=== PATIENT | male | born 1960 ===

== ENCOUNTER 2021-05-12 10:48 | Inpatient (IN) ==
[2021-05-12 15:04] LABS: Basophils % 0.3 % (0.0-0.8); Eosinophils # 0.1 10*3/uL (0.0-0.87); Eosinophils % 0.6 % (0.00-10.9); Hematocrit 29.4 VOL% (42.0-52.0); Hemoglobin 9.4 GM/DL (14.0-18.0); Immature Granulocytes % 0.8 %; Lymphocytes # 0.8 10*3/uL (1.4-4.0); Lymphocytes % 6.7 % (21.2-54.2); Mean Platelet Volume 11.5 FL (9.6-12.0); Monocytes % 10.5 % (1.7-12.7); Neutrophils % 81.1 % (38.7-73.9); Platelet Count 466 T/CUMM (130-400); Red Blood Count 3.34 MC/CUMM (3.8-5.5); Red Cell Distribution Width 15.9 % (9.3-17.3); White Blood Count 12.4 T/CUMM (4-12)
[2021-05-12 15:29] LABS: Albumin 2.1 G/DL (3.4-5.0); Bilirubin,Total 1.1 MG/DL (0.20-1.00); Calcium 9.3 MG/DL (8.5-10.1); Osmolality,Calculated 264.8 MOS/KG (273-304); Total Protein 8.2 G/DL (6.4-8.2)
[2021-05-12 15:32] LABS: Potassium 6.7 MMOL/L (3.5-5.1)
[2021-05-12] MEDS ORDERED: SODIUM CHLORIDE 0.9% 1,000 ML IV STA (15:36)
[2021-05-12] MEDS ORDERED: CLINDAMYCIN INJ 600 MG/50 ML PREMIX IV STA (15:50)
[2021-05-12] MEDS ORDERED: ONDANSETRON 4 MG/2 ML VIAL IV PRN (17:14)
[2021-05-12] MEDS ORDERED: DOCUSATE SODIUM 100 MG CAPSULE PO PRN (17:14)
[2021-05-12] MEDS ORDERED: ACETAMINOPHEN 325 MG TABLET PO PRN (17:14)
[2021-05-12] MEDS ORDERED: GLUCAGON 1 MG VIAL IM PRN ×2 (17:14)
[2021-05-12] MEDS ORDERED: DEXTROSE 50% 25 GM/50 ML VIAL IV PRN (17:14)
[2021-05-12] MEDS ORDERED: hydrALAZINE 20 MG/1 ML VIAL IV PRN (17:14)
[2021-05-12] MEDS ORDERED: METOPROLOL TARTRATE 5 MG/5 ML VIAL IV STA (17:24)
[2021-05-12] MEDS ORDERED: DEXTROSE 10% 250 ML BAG IV PRN (17:25)
[2021-05-12] MEDS ORDERED: SODIUM POLYSTYRENE SULFATE 15 GM/60 ML BOTTLE PO STA (17:42)
[2021-05-12] MEDS: PIPERACILLIN/TAZOBACTAM 3,375 MG in SODIUM CHLORIDE 0.9% 100 ML IV SCH (18:59)
[2021-05-12] MEDS: SODIUM CHLORIDE 0.9% 1,000 ML IV SCH (20:25)
[2021-05-12] MEDS: INSULIN LISPRO 100 UNIT/ML SUBCUT SCH (21:23)
[2021-05-12] MEDS: HYDROmorphone 1 MG/1 ML SYRINGE IV PRN (21:24)
[2021-05-12] MEDS: LINEZOLID INJ 600 MG/300 ML PREMIX IV SCH (22:38)
[2021-05-13] MEDS: HYDROmorphone 1 MG/1 ML SYRINGE IV PRN ×2 (02:16→05:53)
[2021-05-13] MEDS: PIPERACILLIN/TAZOBACTAM 3,375 MG in SODIUM CHLORIDE 0.9% 100 ML IV SCH ×3 (02:16→21:11)
[2021-05-13 05:45] LABS: Albumin 2.1 G/DL (3.4-5.0); Bilirubin,Total 1.7 MG/DL (0.20-1.00); Calcium 8.9 MG/DL (8.5-10.1); Osmolality,Calculated 275.2 MOS/KG (273-304); Potassium 4.4 MMOL/L (3.5-5.1); Risk Ratio 6.08; Total Protein 6.7 G/DL (6.4-8.2); VLDL Cholesterol 23.8 MG/DL
[2021-05-13 05:52] LABS: Basophils % 0.2 % (0.0-0.8); Eosinophils # 0.1 10*3/uL (0.0-0.87); Eosinophils % 0.9 % (0.00-10.9); Hematocrit 29.3 VOL% (42.0-52.0); Hemoglobin 9.6 GM/DL (14.0-18.0); Immature Granulocytes % 0.6 %; Immature Granulocytes Absolute 0.08 #; Lymphocytes # 1.3 10*3/uL (1.4-4.0); Lymphocytes % 9.3 % (21.2-54.2); Mean Corpuscular HGB Conc 32.8 GM/DL (32-36); Mean Corpuscular Volume 86.7 FL (87-102); Mean Platelet Volume 11.1 FL (9.6-12.0); Monocytes % 12.4 % (1.7-12.7); Neutrophils % 76.6 % (38.7-73.9); Platelet Count 475 T/CUMM (130-400); Red Blood Count 3.38 MC/CUMM (3.8-5.5); Red Cell Distribution Width 15.5 % (9.3-17.3); White Blood Count 13.8 T/CUMM (4-12)
[2021-05-13] MEDS: LINEZOLID INJ 600 MG/300 ML PREMIX IV SCH (09:50)
[2021-05-13] MEDS: INSULIN LISPRO 100 UNIT/ML SUBCUT SCH ×4 (09:51→21:10)
[2021-05-13] MEDS ORDERED: LIDOCAINE 2% 5 ML VIAL ONE (10:09)
[2021-05-13] MEDS ORDERED: propofoL 200 MG/20 ML VIAL IV ONE (10:09)
[2021-05-13] MEDS ORDERED: SEVOFLURANE 1 UNIT/15 MINUTE INH ONE ×2 (10:09→11:35)
[2021-05-13] MEDS: SODIUM CHLORIDE 0.9% 1,000 ML IV SCH ×2 (10:24→17:48)
[2021-05-13] MEDS ORDERED: ROPIVACAINE 0.5% 30 ML VIAL ONE (10:26)
[2021-05-13] MEDS ORDERED: MIDAZOLAM 2 MG/2 ML VIAL ONE (10:50)
[2021-05-13] MEDS ORDERED: PHENYLEPHRINE 1 MG/10 ML SYRINGE IV ONE (11:18)
[2021-05-13] MEDS ORDERED: fentaNYL 100 MCG/2 ML VIAL ONE (11:29)
[2021-05-13] MEDS: GABAPENTIN 100 MG CAPSULE PO SCH ×2 (13:20→17:50)
[2021-05-13] MEDS: ASPIRIN CHEW 81 MG TABLET PO SCH (13:20)
[2021-05-13] MEDS: PANTOPRAZOLE 40 MG TABLET PO SCH (13:20)
[2021-05-13] MEDS: DOCUSATE/SENNA 50-8.6 MG TABLET PO SCH ×2 (13:20→21:10)
[2021-05-13] MEDS: FLUoxetine 20 MG CAPSULE PO SCH (13:21)
[2021-05-13] MEDS: METOPROLOL SUCCINATE XL 100 MG TABLET PO SCH (13:23)
[2021-05-13] MEDS ORDERED: GLUCAGON 1 MG VIAL IM PRN (16:13)
[2021-05-13] MEDS ORDERED: DEXTROSE 50% 25 GM/50 ML VIAL IV PRN (16:13)
[2021-05-13] MEDS: GABAPENTIN 600 MG TABLET PO SCH ×2 (16:23→21:10)
[2021-05-13] MEDS: METOPROLOL SUCCINATE XL 25 MG TABLET PO SCH ×2 (17:50→17:51)
[2021-05-13] MEDS: SACUBITRIL/VALSARTAN 49-51 MG TABLET PO SCH (21:10)
[2021-05-14] MEDS: LINEZOLID INJ 600 MG/300 ML PREMIX IV SCH ×3 (00:30→20:34)
[2021-05-14] MEDS: HYDROmorphone 1 MG/1 ML SYRINGE IV PRN ×2 (04:02→19:16)
[2021-05-14] MEDS: PIPERACILLIN/TAZOBACTAM 3,375 MG in SODIUM CHLORIDE 0.9% 100 ML IV SCH ×3 (04:06→22:02)
[2021-05-14 04:32] LABS: Basophils % 0.2 % (0.0-0.8); Eosinophils # 0.2 10*3/uL (0.0-0.87); Hemoglobin 8.4 GM/DL (14.0-18.0); Immature Granulocytes % 0.6 %; Immature Granulocytes Absolute 0.07 #; Lymphocytes # 1.1 10*3/uL (1.4-4.0); Lymphocytes % 9.2 % (21.2-54.2); Mean Corpuscular HGB Conc 32.3 GM/DL (32-36); Mean Corpuscular Volume 88.4 FL (87-102); Monocytes % 10.2 % (1.7-12.7); Neutrophils % 77.8 % (38.7-73.9); Platelet Count 430 T/CUMM (130-400); Red Blood Count 2.94 MC/CUMM (3.8-5.5); Red Cell Distribution Width 15.9 % (9.3-17.3); White Blood Count 12.2 T/CUMM (4-12)
[2021-05-14 04:57] LABS: Albumin 1.7 G/DL (3.4-5.0); Bilirubin,Total 1.4 MG/DL (0.20-1.00); Calcium 8.6 MG/DL (8.5-10.1); Osmolality,Calculated 274.2 MOS/KG (273-304); Potassium 4.4 MMOL/L (3.5-5.1); Total Protein 6.8 G/DL (6.4-8.2)
[2021-05-14] MEDS: INSULIN LISPRO 100 UNIT/ML SUBCUT SCH ×4 (08:45→20:35)
[2021-05-14] MEDS: GABAPENTIN 600 MG TABLET PO SCH ×3 (09:00→20:35)
[2021-05-14] MEDS: ASPIRIN CHEW 81 MG TABLET PO SCH (09:00)
[2021-05-14] MEDS: PANTOPRAZOLE 40 MG TABLET PO SCH (09:00)
[2021-05-14] MEDS: ATORVASTATIN 40 MG TABLET PO SCH (09:00)
[2021-05-14] MEDS: FLUoxetine 20 MG CAPSULE PO SCH (09:00)
[2021-05-14] MEDS: DOCUSATE/SENNA 50-8.6 MG TABLET PO SCH ×2 (09:04→20:33)
[2021-05-14] MEDS: SACUBITRIL/VALSARTAN 49-51 MG TABLET PO SCH ×2 (09:05→20:34)
[2021-05-14] MEDS: METOPROLOL SUCCINATE XL 100 MG TABLET PO SCH (09:05)
[2021-05-14] MEDS ORDERED: MIDAZOLAM 2 MG/2 ML VIAL IV ONE (11:52)
[2021-05-14] MEDS ORDERED: fentaNYL 100 MCG/2 ML VIAL IV ONE (11:52)
[2021-05-14] MEDS ORDERED: DIAZEPAM 5 MG TABLET PO ONE (11:52)
[2021-05-14] MEDS ORDERED: HEPARIN/NACL 0.9% 2 UNITS/ML 4,000 UNIT/2,000 ML BAG IV ONE (12:03)
[2021-05-14] MEDS: SODIUM HYPOCHLORITE 0.25% IRRIG 473 ML BOTTLE TOP SCH (12:12)
[2021-05-14] MEDS: SODIUM CHLORIDE 0.45% 1,000 ML IV SCH (12:20)
[2021-05-14] MEDS ORDERED: HEPARIN 5,000 UNIT/1 ML VIAL ONE (12:33)
[2021-05-14] MEDS ORDERED: ALTEPLASE 2 MG VIAL ONE (13:26)
[2021-05-14] MEDS ORDERED: HEPARIN 5,000 UNIT/1 ML VIAL IV ONE ×3 (13:26→14:37)
[2021-05-14] MEDS ORDERED: HEPARIN 1,000 UNIT/1 ML VIAL ONE ×3 (14:00→14:32)
[2021-05-14] MEDS ORDERED: ALTEPLASE 24 MG in SODIUM CHLORIDE 0.9% 480 ML IV SCH (15:30)
[2021-05-14] MEDS: HEPARIN DRIP 25,000 UNITS/500 ML PREMIX IV SCH (15:39)
[2021-05-14 17:17] LABS: INR 2.5
[2021-05-14 17:25] LABS: PT Patient Result 26.5 SECS (10.5-12.0); Partial Thromboplastin Time 51.7 SECS (23.8-32.1)
[2021-05-15] MEDS: HYDROmorphone 1 MG/1 ML SYRINGE IV PRN ×2 (00:24→12:15)
[2021-05-15] MEDS: SODIUM CHLORIDE 0.9% 1,000 ML IV SCH ×2 (02:29→06:59)
[2021-05-15] MEDS: PIPERACILLIN/TAZOBACTAM 3,375 MG in SODIUM CHLORIDE 0.9% 100 ML IV SCH ×3 (04:14→22:35)
[2021-05-15 04:29] LABS: Basophils % 0.3 % (0.0-0.8); Eosinophils # 0.2 10*3/uL (0.0-0.87); Eosinophils % 2.2 % (0.00-10.9); Hematocrit 24.7 VOL% (42.0-52.0); Immature Granulocytes % 0.5 %; Immature Granulocytes Absolute 0.05 #; Lymphocytes # 0.9 10*3/uL (1.4-4.0); Lymphocytes % 8.5 % (21.2-54.2); Mean Corpuscular HGB Conc 32.4 GM/DL (32-36); Mean Corpuscular Volume 87.3 FL (87-102); Monocytes % 9.6 % (1.7-12.7); Neutrophils % 78.9 % (38.7-73.9); Platelet Count 367 T/CUMM (130-400); Red Blood Count 2.83 MC/CUMM (3.8-5.5); Red Cell Distribution Width 15.5 % (9.3-17.3); White Blood Count 10.5 T/CUMM (4-12)
[2021-05-15 04:49] LABS: Platelet Estimate Adequate
[2021-05-15 05:06] LABS: INR 1.3; PT Patient Result 14.6 SECS (10.5-12.0)
[2021-05-15 05:16] LABS: Albumin 1.6 G/DL (3.4-5.0); Bilirubin,Total 1.3 MG/DL (0.20-1.00); Calcium 8.1 MG/DL (8.5-10.1); Osmolality,Calculated 269.4 MOS/KG (273-304); Total Protein 6.3 G/DL (6.4-8.2)
[2021-05-15 05:40] LABS: Partial Thromboplastin Time 50.6 SECS (23.8-32.1)
[2021-05-15] MEDS: INSULIN LISPRO 100 UNIT/ML SUBCUT SCH ×4 (07:40→20:43)
[2021-05-15] MEDS: FLUoxetine 20 MG CAPSULE PO SCH (08:51)
[2021-05-15] MEDS: ASPIRIN CHEW 81 MG TABLET PO SCH (08:52)
[2021-05-15] MEDS: DOCUSATE/SENNA 50-8.6 MG TABLET PO SCH ×2 (08:52→20:43)
[2021-05-15] MEDS: PANTOPRAZOLE 40 MG TABLET PO SCH (08:52)
[2021-05-15] MEDS: METOPROLOL SUCCINATE XL 100 MG TABLET PO SCH (08:52)
[2021-05-15] MEDS: SACUBITRIL/VALSARTAN 49-51 MG TABLET PO SCH ×2 (08:52→20:43)
[2021-05-15] MEDS: ATORVASTATIN 40 MG TABLET PO SCH (08:52)
[2021-05-15] MEDS: LINEZOLID INJ 600 MG/300 ML PREMIX IV SCH ×2 (08:53→21:34)
[2021-05-15] MEDS: GABAPENTIN 600 MG TABLET PO SCH ×3 (08:53→20:43)
[2021-05-15] MEDS: SODIUM HYPOCHLORITE 0.25% IRRIG 473 ML BOTTLE TOP SCH (08:53)
[2021-05-15] MEDS ORDERED: HYDROmorphone 1 MG/1 ML SYRINGE IV ONE (14:17)
[2021-05-15] MEDS ORDERED: HEPARIN/NACL 0.9% 2 UNITS/ML 2,000 UNIT/1,000 ML BAG IV ONE ×2 (16:18→16:38)
[2021-05-15] MEDS: HEPARIN DRIP 25,000 UNITS/500 ML PREMIX IV SCH ×2 (19:23→20:44)
[2021-05-15] MEDS: SODIUM CHLORIDE 0.45% 1,000 ML IV SCH (20:35)
[2021-05-16] MEDS: HYDROmorphone 1 MG/1 ML SYRINGE IV PRN ×2 (02:10→14:58)
[2021-05-16] MEDS: SODIUM CHLORIDE 0.9% 1,000 ML IV SCH ×2 (02:13→22:19)
[2021-05-16 03:51] LABS: Basophils % 0.3 % (0.0-0.8); Eosinophils # 0.2 10*3/uL (0.0-0.87); Eosinophils % 1.5 % (0.00-10.9); Hematocrit 24.8 VOL% (42.0-52.0); Hemoglobin 7.8 GM/DL (14.0-18.0); Immature Granulocytes % 0.3 %; Immature Granulocytes Absolute 0.04 #; Lymphocytes # 0.9 10*3/uL (1.4-4.0); Lymphocytes % 7.5 % (21.2-54.2); Mean Corpuscular HGB Conc 31.5 GM/DL (32-36); Mean Corpuscular Volume 88.3 FL (87-102); Mean Platelet Volume 10.3 FL (9.6-12.0); Monocytes % 9.8 % (1.7-12.7); Neutrophils % 80.6 % (38.7-73.9); Platelet Count 315 T/CUMM (130-400); Red Blood Count 2.81 MC/CUMM (3.8-5.5); Red Cell Distribution Width 15.6 % (9.3-17.3); White Blood Count 11.5 T/CUMM (4-12)
[2021-05-16 04:16] LABS: Albumin 1.5 G/DL (3.4-5.0); Bilirubin,Total 1.5 MG/DL (0.20-1.00); Osmolality,Calculated 267.5 MOS/KG (273-304); Potassium 4.1 MMOL/L (3.5-5.1); Total Protein 6.2 G/DL (6.4-8.2)
[2021-05-16] MEDS: PIPERACILLIN/TAZOBACTAM 3,375 MG in SODIUM CHLORIDE 0.9% 100 ML IV SCH ×3 (04:17→21:47)
[2021-05-16] MEDS: INSULIN LISPRO 100 UNIT/ML SUBCUT SCH ×4 (08:00→21:47)
[2021-05-16] MEDS: METOPROLOL SUCCINATE XL 100 MG TABLET PO SCH (08:28)
[2021-05-16] MEDS: LINEZOLID INJ 600 MG/300 ML PREMIX IV SCH ×2 (08:28→21:48)
[2021-05-16] MEDS ORDERED: PHENYLEPHRINE 1 MG/10 ML SYRINGE IV ONE (09:11)
[2021-05-16] MEDS ORDERED: fentaNYL 100 MCG/2 ML VIAL ONE (09:11)
[2021-05-16] MEDS ORDERED: propofoL 200 MG/20 ML VIAL IV ONE (09:11)
[2021-05-16] MEDS ORDERED: LIDOCAINE 2% 5 ML VIAL ONE (09:11)
[2021-05-16] MEDS ORDERED: ONDANSETRON 4 MG/2 ML VIAL ONE (09:11)
[2021-05-16] MEDS ORDERED: MIDAZOLAM 2 MG/2 ML VIAL ONE (09:11)
[2021-05-16] MEDS: SODIUM HYPOCHLORITE 0.25% IRRIG 473 ML BOTTLE TOP SCH (10:32)
[2021-05-16] MEDS: SACUBITRIL/VALSARTAN 49-51 MG TABLET PO SCH ×2 (12:04→21:46)
[2021-05-16] MEDS: ASPIRIN CHEW 81 MG TABLET PO SCH (12:04)
[2021-05-16] MEDS: GABAPENTIN 600 MG TABLET PO SCH ×3 (12:04→21:46)
[2021-05-16] MEDS: DOCUSATE/SENNA 50-8.6 MG TABLET PO SCH ×2 (12:04→21:47)
[2021-05-16] MEDS: PANTOPRAZOLE 40 MG TABLET PO SCH (12:04)
[2021-05-16] MEDS: FLUoxetine 20 MG CAPSULE PO SCH (12:04)
[2021-05-16] MEDS: ATORVASTATIN 40 MG TABLET PO SCH (12:04)
[2021-05-16] MEDS: SODIUM CHLORIDE 0.45% 1,000 ML IV SCH (13:58)
[2021-05-16] MEDS: HEPARIN DRIP 25,000 UNITS/500 ML PREMIX IV SCH ×2 (21:45→22:16)
[2021-05-17] MEDS: PIPERACILLIN/TAZOBACTAM 3,375 MG in SODIUM CHLORIDE 0.9% 100 ML IV SCH ×3 (04:06→21:11)
[2021-05-17 04:31] LABS: Basophils % 0.5 % (0.0-0.8); Eosinophils # 0.2 10*3/uL (0.0-0.87); Eosinophils % 3.3 % (0.00-10.9); Hematocrit 22.2 VOL% (42.0-52.0); Immature Granulocytes % 0.5 %; Immature Granulocytes Absolute 0.03 #; Lymphocytes # 0.8 10*3/uL (1.4-4.0); Lymphocytes % 12.8 % (21.2-54.2); Mean Corpuscular HGB Conc 31.5 GM/DL (32-36); Mean Corpuscular Volume 89.9 FL (87-102); Mean Platelet Volume 10.4 FL (9.6-12.0); Monocytes % 8.5 % (1.7-12.7); Neutrophils % 74.4 % (38.7-73.9); Platelet Count 263 T/CUMM (130-400); Red Blood Count 2.47 MC/CUMM (3.8-5.5); Red Cell Distribution Width 15.5 % (9.3-17.3); White Blood Count 6.3 T/CUMM (4-12)
[2021-05-17 04:43] LABS: INR 1.2; PT Patient Result 13.2 SECS (10.5-12.0); Partial Thromboplastin Time 82.1 SECS (23.8-32.1)
[2021-05-17 04:56] LABS: Albumin 1.4 G/DL (3.4-5.0); Bilirubin,Total 1.1 MG/DL (0.20-1.00); Calcium 7.7 MG/DL (8.5-10.1); Osmolality,Calculated 270.1 MOS/KG (273-304); Potassium 3.6 MMOL/L (3.5-5.1); Total Protein 5.8 G/DL (6.4-8.2)
[2021-05-17] MEDS ORDERED: SODIUM CHLORIDE 0.9% 1,000 ML IV PRN ×2 (08:01→11:05)
[2021-05-17] MEDS: INSULIN LISPRO 100 UNIT/ML SUBCUT SCH ×4 (08:15→21:11)
[2021-05-17] MEDS: ASPIRIN CHEW 81 MG TABLET PO SCH (08:16)
[2021-05-17] MEDS: SACUBITRIL/VALSARTAN 49-51 MG TABLET PO SCH ×2 (08:16→21:09)
[2021-05-17] MEDS: LINEZOLID INJ 600 MG/300 ML PREMIX IV SCH ×2 (08:16→21:10)
[2021-05-17] MEDS: FLUoxetine 20 MG CAPSULE PO SCH (08:16)
[2021-05-17] MEDS: DOCUSATE/SENNA 50-8.6 MG TABLET PO SCH ×2 (08:16→21:09)
[2021-05-17] MEDS: PANTOPRAZOLE 40 MG TABLET PO SCH (08:17)
[2021-05-17] MEDS: SODIUM HYPOCHLORITE 0.25% IRRIG 473 ML BOTTLE TOP SCH (08:17)
[2021-05-17] MEDS: METOPROLOL SUCCINATE XL 100 MG TABLET PO SCH (08:17)
[2021-05-17] MEDS: ATORVASTATIN 40 MG TABLET PO SCH (08:19)
[2021-05-17] MEDS: GABAPENTIN 600 MG TABLET PO SCH ×3 (08:19→21:09)
[2021-05-17 12:05] LABS: INR 1.2; Partial Thromboplastin Time 64.6 SECS (23.8-32.1)
[2021-05-17 17:34] LABS: Hematocrit 29.4 VOL% (42.0-52.0)
[2021-05-17 17:47] LABS: Hemoglobin 9.5 GM/DL (14.0-18.0)
[2021-05-17 17:58] LABS: INR 1.1; PT Patient Result 12.6 SECS (10.5-12.0)
[2021-05-17 17:59] LABS: Partial Thromboplastin Time 58.9 SECS (23.8-32.1)
[2021-05-17] MEDS: HEPARIN DRIP 25,000 UNITS/500 ML PREMIX IV SCH (20:42)
[2021-05-18] MEDS: HEPARIN DRIP 25,000 UNITS/500 ML PREMIX IV SCH (01:33)
[2021-05-18] MEDS: PIPERACILLIN/TAZOBACTAM 3,375 MG in SODIUM CHLORIDE 0.9% 100 ML IV SCH ×2 (04:40→12:50)
[2021-05-18 05:22] LABS: Basophils % 0.5 % (0.0-0.8); Eosinophils # 0.3 10*3/uL (0.0-0.87); Eosinophils % 3.2 % (0.00-10.9); Hemoglobin 9.6 GM/DL (14.0-18.0); Immature Granulocytes % 0.4 %; Immature Granulocytes Absolute 0.03 #; Lymphocytes % 12.1 % (21.2-54.2); Mean Corpuscular HGB Conc 33.1 GM/DL (32-36); Mean Corpuscular Volume 87.1 FL (87-102); Mean Platelet Volume 10.5 FL (9.6-12.0); Monocytes % 8.7 % (1.7-12.7); Neutrophils % 75.1 % (38.7-73.9); Platelet Count 266 T/CUMM (130-400); Red Blood Count 3.33 MC/CUMM (3.8-5.5); Red Cell Distribution Width 15.3 % (9.3-17.3); White Blood Count 7.8 T/CUMM (4-12)
[2021-05-18 05:45] LABS: INR 1.1; PT Patient Result 12.7 SECS (10.5-12.0); Partial Thromboplastin Time 67.1 SECS (23.8-32.1)
[2021-05-18 05:48] LABS: Albumin 1.5 G/DL (3.4-5.0); Bilirubin,Total 1.1 MG/DL (0.20-1.00); Calcium 8.3 MG/DL (8.5-10.1); Osmolality,Calculated 271.8 MOS/KG (273-304); Potassium 3.9 MMOL/L (3.5-5.1); Total Protein 6.2 G/DL (6.4-8.2)
[2021-05-18] MEDS: HYDROmorphone 1 MG/1 ML SYRINGE IV PRN (07:36)
[2021-05-18] MEDS: GABAPENTIN 600 MG TABLET PO SCH ×3 (08:14→22:23)
[2021-05-18] MEDS: INSULIN LISPRO 100 UNIT/ML SUBCUT SCH ×4 (08:16→22:23)
[2021-05-18] MEDS: FLUoxetine 20 MG CAPSULE PO SCH (08:17)
[2021-05-18] MEDS: METOPROLOL SUCCINATE XL 100 MG TABLET PO SCH (08:17)
[2021-05-18] MEDS: DOCUSATE/SENNA 50-8.6 MG TABLET PO SCH (08:17)
[2021-05-18] MEDS: ASPIRIN CHEW 81 MG TABLET PO SCH (08:17)
[2021-05-18] MEDS: PANTOPRAZOLE 40 MG TABLET PO SCH (08:17)
[2021-05-18] MEDS: ATORVASTATIN 40 MG TABLET PO SCH (08:17)
[2021-05-18] MEDS: SACUBITRIL/VALSARTAN 49-51 MG TABLET PO SCH ×2 (08:17→22:23)
[2021-05-18] MEDS: LINEZOLID INJ 600 MG/300 ML PREMIX IV SCH ×2 (08:18→22:27)
[2021-05-18] MEDS: SODIUM HYPOCHLORITE 0.25% IRRIG 473 ML BOTTLE TOP SCH (08:19)
[2021-05-19] MEDS: PIPERACILLIN/TAZOBACTAM 3,375 MG in SODIUM CHLORIDE 0.9% 100 ML IV SCH ×2 (00:03→08:54)
[2021-05-19] MEDS: DOCUSATE/SENNA 50-8.6 MG TABLET PO SCH ×2 (01:01→15:00)
[2021-05-19 05:27] LABS: Basophils % 0.5 % (0.0-0.8); Eosinophils # 0.2 10*3/uL (0.0-0.87); Eosinophils % 2.9 % (0.00-10.9); Hematocrit 29.6 VOL% (42.0-52.0); Hemoglobin 9.6 GM/DL (14.0-18.0); Immature Granulocytes % 0.3 %; Immature Granulocytes Absolute 0.02 #; Lymphocytes # 0.8 10*3/uL (1.4-4.0); Mean Corpuscular HGB Conc 32.4 GM/DL (32-36); Mean Corpuscular Volume 87.1 FL (87-102); Mean Platelet Volume 10.4 FL (9.6-12.0); Monocytes % 7.7 % (1.7-12.7); Neutrophils % 75.6 % (38.7-73.9); Platelet Count 256 T/CUMM (130-400); Red Cell Distribution Width 15.1 % (9.3-17.3); White Blood Count 6.3 T/CUMM (4-12)
[2021-05-19 05:37] LABS: INR 1.1; PT Patient Result 12.4 SECS (10.5-12.0)
[2021-05-19 05:40] LABS: Partial Thromboplastin Time 57.8 SECS (23.8-32.1)
[2021-05-19 05:50] LABS: Albumin 1.7 G/DL (3.4-5.0); Bilirubin,Total 0.8 MG/DL (0.20-1.00); Calcium 8.1 MG/DL (8.5-10.1); Osmolality,Calculated 274.7 MOS/KG (273-304); Potassium 3.7 MMOL/L (3.5-5.1); Total Protein 6.3 G/DL (6.4-8.2)
[2021-05-19] MEDS: HEPARIN DRIP 25,000 UNITS/500 ML PREMIX IV SCH (06:43)
[2021-05-19] MEDS: SACUBITRIL/VALSARTAN 49-51 MG TABLET PO SCH ×2 (08:53→20:40)
[2021-05-19] MEDS: ATORVASTATIN 40 MG TABLET PO SCH (08:53)
[2021-05-19] MEDS: PANTOPRAZOLE 40 MG TABLET PO SCH (08:53)
[2021-05-19] MEDS: GABAPENTIN 600 MG TABLET PO SCH ×3 (08:54→20:40)
[2021-05-19] MEDS: METOPROLOL SUCCINATE XL 100 MG TABLET PO SCH (08:54)
[2021-05-19] MEDS: FLUoxetine 20 MG CAPSULE PO SCH (08:54)
[2021-05-19] MEDS: ASPIRIN CHEW 81 MG TABLET PO SCH (08:54)
[2021-05-19] MEDS: INSULIN LISPRO 100 UNIT/ML SUBCUT SCH ×4 (13:04→20:50)
[2021-05-19] MEDS: SODIUM HYPOCHLORITE 0.25% IRRIG 473 ML BOTTLE TOP SCH (13:04)
[2021-05-19] MEDS: LINEZOLID INJ 600 MG/300 ML PREMIX IV SCH (13:35)
[2021-05-19] MEDS ORDERED: cefTRIAXone 2,000 MG in SODIUM CHLORIDE 0.9% 100 ML IV SCH (16:00)
[2021-05-19] MEDS ORDERED: RIVAROXABAN 20 MG TABLET PO SCH (17:00)
[2021-05-20 05:25] LABS: Basophils % 0.4 % (0.0-0.8); Eosinophils # 0.2 10*3/uL (0.0-0.87); Eosinophils % 2.5 % (0.00-10.9); Hematocrit 31.8 VOL% (42.0-52.0); Hemoglobin 10.2 GM/DL (14.0-18.0); Immature Granulocytes % 0.4 %; Immature Granulocytes Absolute 0.03 #; Lymphocytes # 0.9 10*3/uL (1.4-4.0); Lymphocytes % 12.7 % (21.2-54.2); Mean Corpuscular HGB Conc 32.1 GM/DL (32-36); Mean Corpuscular Volume 88.6 FL (87-102); Mean Platelet Volume 10.7 FL (9.6-12.0); Monocytes % 8.2 % (1.7-12.7); Neutrophils % 75.8 % (38.7-73.9); Platelet Count 238 T/CUMM (130-400); Red Blood Count 3.59 MC/CUMM (3.8-5.5); Red Cell Distribution Width 14.7 % (9.3-17.3); White Blood Count 6.7 T/CUMM (4-12)
[2021-05-20 05:56] LABS: Albumin 1.8 G/DL (3.4-5.0); Bilirubin,Total 0.5 MG/DL (0.20-1.00); Calcium 8.6 MG/DL (8.5-10.1); Osmolality,Calculated 274.5 MOS/KG (273-304); Potassium 3.9 MMOL/L (3.5-5.1); Total Protein 6.8 G/DL (6.4-8.2)
[2021-05-20] MEDS: SACUBITRIL/VALSARTAN 49-51 MG TABLET PO SCH (08:58)
[2021-05-20] MEDS: SODIUM HYPOCHLORITE 0.25% IRRIG 473 ML BOTTLE TOP SCH (08:58)
[2021-05-20] MEDS: GABAPENTIN 600 MG TABLET PO SCH ×2 (08:58→15:05)
[2021-05-20] MEDS: ASPIRIN CHEW 81 MG TABLET PO SCH (08:59)
[2021-05-20] MEDS: METOPROLOL SUCCINATE XL 100 MG TABLET PO SCH (08:59)
[2021-05-20] MEDS: ATORVASTATIN 40 MG TABLET PO SCH (08:59)
[2021-05-20] MEDS: PANTOPRAZOLE 40 MG TABLET PO SCH (08:59)
[2021-05-20] MEDS: FLUoxetine 20 MG CAPSULE PO SCH (08:59)
[2021-05-20] MEDS: INSULIN LISPRO 100 UNIT/ML SUBCUT SCH ×2 (09:46→11:49)
[2021-05-20] MEDS: HYDROmorphone 1 MG/1 ML SYRINGE IV PRN (10:00)
[2021-05-20 12:09] VITALS: BP 156/103
== END 2021-05-20 15:50 | disposition home health service (06) | DRG 271 ==
LOC: N.ED 10:48 → N.EDINP 17:14 → SUATTDRO 17:14 → N.EDINP 05-13 04:07 → N.TELEN 05-13 04:42 → N.ICU 05-14 16:06 → N.3E 05-18 19:16
PROVIDERS: ADMIT Internal Medicine; ATTEND Internal Medicine

== ENCOUNTER 2021-05-29 23:12 | Inpatient (IN) ==
[2021-05-29] MEDS ORDERED: ACETAMINOPHEN 500 MG TABLET PO STA (23:41)
[2021-05-29] MEDS ORDERED: DILTIAZEM 50 MG/10 ML VIAL IV STA (23:41)
[2021-05-29] MEDS ORDERED: PIPERACILLIN/TAZOBACTAM 3,375 MG in SODIUM CHLORIDE 0.9% 100 ML IV STA (23:41)
[2021-05-29] MEDS ORDERED: SODIUM CHLORIDE 0.9% 1,000 ML IV STA (23:41)
[2021-05-29] MEDS ORDERED: DILTIAZEM 25 MG/5 ML VIAL IV STA (23:53)
[2021-05-30] MEDS: DILTIAZEM INJ 100 MG in SODIUM CHLORIDE 0.9% 100 ML IV SCH ×2 (00:13→23:38)
[2021-05-30 00:40] LABS: Basophils % 0.2 % (0.0-0.8); Eosinophils % 0.2 % (0.00-10.9); Hematocrit 32.8 VOL% (42.0-52.0); Hemoglobin 10.7 GM/DL (14.0-18.0); Immature Granulocytes % 0.7 %; Immature Granulocytes Absolute 0.15 #; Lymphocytes # 0.7 10*3/uL (1.4-4.0); Lymphocytes % 3.2 % (21.2-54.2); Mean Corpuscular HGB Conc 32.6 GM/DL (32-36); Mean Corpuscular Volume 89.1 FL (87-102); Mean Platelet Volume 12.4 FL (9.6-12.0); Monocytes # 2.1 10*3/uL (0.11-0.8); Monocytes % 10.3 % (1.7-12.7); Neutrophils % 85.4 % (38.7-73.9); Platelet Count 374 T/CUMM (130-400); Red Blood Count 3.68 MC/CUMM (3.8-5.5); White Blood Count 20.6 T/CUMM (4-12)
[2021-05-30 01:00] LABS: Lymphocytes 3 % (20-55); Platelet Estimate Adequate; Total Cells Counted 100
[2021-05-30 01:04] LABS: Alanine Aminotransferase 20 U/L (16-61); Albumin 2.6 G/DL (3.4-5.0); Alkaline Phosphatase 116 U/L (45-117); Aspartate Amino Transferase 27 U/L (0-37); Blood Urea Nitrogen 19 MG/DL (7-18); Calcium 8.2 MG/DL (8.5-10.1); Carbon Dioxide 16 MMOL/L (21-32); Chloride 106 MMOL/L (98-107); Estimated Glom Filtration Rate 47 ML/MIN; Glucose 216 MG/DL (74-106); Potassium 4.6 MMOL/L (3.5-5.1); Sodium 136 MMOL/L (136-145); Total Protein 7.3 G/DL (6.4-8.2)
[2021-05-30] MEDS ORDERED: SODIUM CHLORIDE 0.9% 2,150 ML IV ONE (01:05)
[2021-05-30 01:17] LABS: INR 1.2; PT Patient Result 13.6 SECS (10.5-12.0); Partial Thromboplastin Time 32.5 SECS (23.8-32.1)
[2021-05-30] MEDS ORDERED: MAGNESIUM SULF RIDER 2 GM/50 ML PREMIX IV STA (01:39)
[2021-05-30 02:43] LABS: ABG Base Excess -6.5 MMOL/L (-2.5-2.5); ABG Oxygen Saturation 98.1 % (95-100); ABG PCO2 26.5 MM HG (35-48); ABG PH 7.415 (7.35-7.45); ABG TCO2 15.6 MMOL/L (23-27)
[2021-05-30 02:45] LABS: Bacteria,Urine Occasional /HPF (Few); Bilirubin,Urine Small mg/dL (Negative); Glucose,Urine (UA) Negative (Negative); Hyaline Casts,Urine 8 /LPF (0-3); Ketones,Urine TR mg/dL (Negative); Mucus,Urine Occasional /LPF (Occasional); Nitrite,Urine Negative (Negative); Protein,Urine 100 mg/dL (Negative); RBC,Urine 2 /HPF (0-4); Sperm,Urine Occasional /HPF (Negative); Squamous Epithelial Cell,Urine Occasional /HPF (0-10); Urine Appearance Slightly Cloudy (Clear); Urine Color Dark Yellow (Yellow); Urine Specific Gravity 1.025 (1.001-1.035); Urine pH 5.5 (4.5-8.0)
[2021-05-30 02:46] LABS: Blood, Urine Negative (Negative); Urine Urobilinogen 0.2 eU/dL (<2.0)
[2021-05-30] MEDS ORDERED: VANCOMYCIN 50 MG/ML 60 ML/BOTTLE PO STA (02:55)
[2021-05-30] MEDS ORDERED: VANCOMYCIN 125 MG CAPSULE PO STA (03:01)
[2021-05-30] MEDS ORDERED: GLUCAGON 1 MG VIAL IM PRN (03:48)
[2021-05-30] MEDS ORDERED: ONDANSETRON 4 MG/2 ML VIAL IV PRN (03:49)
[2021-05-30] MEDS ORDERED: ACETAMINOPHEN 325 MG TABLET PO PRN (03:49)
[2021-05-30] MEDS ORDERED: DEXTROSE 10% 250 ML BAG IV PRN (03:57)
[2021-05-30] MEDS: SODIUM CHLORIDE 0.9% 1,000 ML IV SCH ×3 (04:16→21:27)
[2021-05-30 04:26] LABS: Basophils # 0.1 10*3/uL (0.0-0.2); Basophils % 0.3 % (0.0-0.8); Hematocrit 29.7 VOL% (42.0-52.0); Hemoglobin 9.3 GM/DL (14.0-18.0); Immature Granulocytes % 0.7 %; Immature Granulocytes Absolute 0.14 #; Lymphocytes # 0.8 10*3/uL (1.4-4.0); Lymphocytes % 4.3 % (21.2-54.2); Mean Corpuscular HGB Conc 31.3 GM/DL (32-36); Mean Corpuscular Volume 91.4 FL (87-102); Mean Platelet Volume 12.3 FL (9.6-12.0); Monocytes # 1.5 10*3/uL (0.11-0.8); Monocytes % 8.1 % (1.7-12.7); Neutrophils % 86.6 % (38.7-73.9); Platelet Count 340 T/CUMM (130-400); Red Blood Count 3.25 MC/CUMM (3.8-5.5); Red Cell Distribution Width 15.9 % (9.3-17.3); White Blood Count 18.7 T/CUMM (4-12)
[2021-05-30 04:47] LABS: Lymphocytes 4 % (20-55); Platelet Estimate Adequate; Total Cells Counted 100
[2021-05-30] MEDS: INSULIN LISPRO 100 UNIT/ML SUBCUT SCH ×4 (08:20→21:21)
[2021-05-30] MEDS ORDERED: FLUoxetine 20 MG CAPSULE PO SCH (09:00)
[2021-05-30] MEDS: SACUBITRIL/VALSARTAN 49-51 MG TABLET PO SCH ×2 (09:02→21:19)
[2021-05-30] MEDS: ATORVASTATIN 40 MG TABLET PO SCH (09:02)
[2021-05-30] MEDS: ASPIRIN CHEW 81 MG TABLET PO SCH (09:02)
[2021-05-30] MEDS: CLOPIDOGREL 75 MG TABLET PO SCH (09:03)
[2021-05-30] MEDS: METOPROLOL SUCCINATE XL 100 MG TABLET PO SCH (09:03)
[2021-05-30] MEDS: GABAPENTIN 600 MG TABLET PO SCH ×3 (09:28→21:19)
[2021-05-30] MEDS: VANCOMYCIN 125 MG CAPSULE PO SCH ×2 (10:25→19:24)
[2021-05-30 10:30] LABS: Barbiturates Screen,Urine Negative (Negative); Benzodiazepines Screen,Urine Negative (Negative); Cannabinoid Screen,Urine Negative (Negative); Opiate Screen,Urine Negative (Negative); Phencyclidine Screen,Urine Negative (Negative)
[2021-05-30] MEDS: RIVAROXABAN 20 MG TABLET PO SCH (19:24)
[2021-05-30] MEDS: INSULIN GLARGINE 100 UNIT/ML SUBCUT SCH (21:20)
[2021-05-31] MEDS: VANCOMYCIN 125 MG CAPSULE PO SCH ×4 (02:17→20:33)
[2021-05-31 04:52] LABS: Basophils % 0.3 % (0.0-0.8); Eosinophils # 0.2 10*3/uL (0.0-0.87); Eosinophils % 1.7 % (0.00-10.9); Hematocrit 27.7 VOL% (42.0-52.0); Hemoglobin 8.6 GM/DL (14.0-18.0); Immature Granulocytes % 0.9 %; Immature Granulocytes Absolute 0.12 #; Lymphocytes # 1.1 10*3/uL (1.4-4.0); Mean Corpuscular Volume 91.1 FL (87-102); Mean Platelet Volume 11.7 FL (9.6-12.0); Monocytes # 1.4 10*3/uL (0.11-0.8); Monocytes % 10.5 % (1.7-12.7); Neutrophils % 78.6 % (38.7-73.9); Platelet Count 313 T/CUMM (130-400); Red Blood Count 3.04 MC/CUMM (3.8-5.5); Red Cell Distribution Width 16.4 % (9.3-17.3); White Blood Count 13.3 T/CUMM (4-12)
[2021-05-31 05:06] LABS: Calcium 7.9 MG/DL (8.5-10.1); Osmolality,Calculated 282.3 MOS/KG (273-304); Potassium 3.9 MMOL/L (3.5-5.1)
[2021-05-31 05:15] LABS: Eosinophils 2 % (0-10); Lymphocytes 6 % (20-55); Total Cells Counted 100
[2021-05-31 05:16] LABS: Platelet Estimate Normal
[2021-05-31] MEDS: SODIUM CHLORIDE 0.9% 1,000 ML IV SCH ×3 (05:51→22:10)
[2021-05-31] MEDS: INSULIN LISPRO 100 UNIT/ML SUBCUT SCH ×4 (07:52→20:07)
[2021-05-31] MEDS: ASPIRIN CHEW 81 MG TABLET PO SCH (08:01)
[2021-05-31] MEDS: METOPROLOL SUCCINATE XL 100 MG TABLET PO SCH (08:02)
[2021-05-31] MEDS: ATORVASTATIN 40 MG TABLET PO SCH (08:02)
[2021-05-31] MEDS: GABAPENTIN 600 MG TABLET PO SCH ×3 (08:02→20:33)
[2021-05-31] MEDS: SACUBITRIL/VALSARTAN 49-51 MG TABLET PO SCH ×2 (08:02→20:33)
[2021-05-31] MEDS: CLOPIDOGREL 75 MG TABLET PO SCH (08:02)
[2021-05-31] MEDS ORDERED: cefTRIAXone 1,000 MG in SODIUM CHLORIDE 0.9% 100 ML IV SCH (09:30)
[2021-05-31 09:55] LABS: Folate 5.77 NG/ML (5.38-24.0)
[2021-05-31 10:11] LABS: % Iron Saturation 7.5 % (18-50); Ferritin 311.1 ng/mL (26-388)
[2021-05-31] MEDS: RIVAROXABAN 20 MG TABLET PO SCH (16:45)
[2021-05-31] MEDS: INSULIN GLARGINE 100 UNIT/ML SUBCUT SCH (20:07)
[2021-05-31] MEDS: DILTIAZEM INJ 100 MG in SODIUM CHLORIDE 0.9% 100 ML IV SCH (22:50)
[2021-06-01] MEDS: VANCOMYCIN 125 MG CAPSULE PO SCH ×4 (02:16→20:33)
[2021-06-01 05:28] LABS: Basophils # 0.1 10*3/uL (0.0-0.2); Basophils % 1.3 % (0.0-0.8); Eosinophils # 0.3 10*3/uL (0.0-0.87); Eosinophils % 4.5 % (0.00-10.9); Hemoglobin 9.2 GM/DL (14.0-18.0); Immature Granulocytes % 0.3 %; Immature Granulocytes Absolute 0.02 #; Mean Corpuscular HGB Conc 30.7 GM/DL (32-36); Mean Corpuscular Volume 92.6 FL (87-102); Mean Platelet Volume 12.1 FL (9.6-12.0); Monocytes # 0.6 10*3/uL (0.11-0.8); Monocytes % 10.1 % (1.7-12.7); Neutrophils % 66.8 % (38.7-73.9); Platelet Count 316 T/CUMM (130-400); Red Blood Count 3.24 MC/CUMM (3.8-5.5); Red Cell Distribution Width 16.3 % (9.3-17.3); White Blood Count 6.1 T/CUMM (4-12)
[2021-06-01 05:40] LABS: Calcium 7.9 MG/DL (8.5-10.1); Osmolality,Calculated 279.3 MOS/KG (273-304); Potassium 3.7 MMOL/L (3.5-5.1)
[2021-06-01] MEDS: SODIUM CHLORIDE 0.9% 1,000 ML IV SCH ×2 (06:10→15:45)
[2021-06-01] MEDS: INSULIN LISPRO 100 UNIT/ML SUBCUT SCH ×4 (09:59→20:34)
[2021-06-01] MEDS: GABAPENTIN 600 MG TABLET PO SCH ×3 (09:59→20:33)
[2021-06-01] MEDS: ATORVASTATIN 40 MG TABLET PO SCH (10:00)
[2021-06-01] MEDS: CLOPIDOGREL 75 MG TABLET PO SCH (10:00)
[2021-06-01] MEDS: ASPIRIN CHEW 81 MG TABLET PO SCH (10:00)
[2021-06-01] MEDS: SACUBITRIL/VALSARTAN 49-51 MG TABLET PO SCH ×2 (10:00→20:33)
[2021-06-01] MEDS: METOPROLOL SUCCINATE XL 100 MG TABLET PO SCH (10:00)
[2021-06-01] MEDS: FERRIC GLUCONATE COMPLEX 125 MG in SODIUM CHLORIDE 0.9% 100 ML IV SCH (10:01)
[2021-06-01] MEDS: RIVAROXABAN 20 MG TABLET PO SCH (16:24)
[2021-06-01] MEDS: INSULIN GLARGINE 100 UNIT/ML SUBCUT SCH (20:33)
[2021-06-02] MEDS: VANCOMYCIN 125 MG CAPSULE PO SCH ×4 (01:45→21:59)
[2021-06-02] MEDS: DILTIAZEM INJ 100 MG in SODIUM CHLORIDE 0.9% 100 ML IV SCH ×2 (02:10→23:58)
[2021-06-02 05:02] LABS: Basophils # 0.1 10*3/uL (0.0-0.2); Basophils % 1.5 % (0.0-0.8); Eosinophils # 0.3 10*3/uL (0.0-0.87); Eosinophils % 5.4 % (0.00-10.9); Hematocrit 32.5 VOL% (42.0-52.0); Hemoglobin 10.1 GM/DL (14.0-18.0); Immature Granulocytes % 0.4 %; Immature Granulocytes Absolute 0.02 #; Lymphocytes # 1.1 10*3/uL (1.4-4.0); Lymphocytes % 20.2 % (21.2-54.2); Mean Corpuscular HGB Conc 31.1 GM/DL (32-36); Mean Corpuscular Volume 90.5 FL (87-102); Mean Platelet Volume 11.7 FL (9.6-12.0); Monocytes # 0.6 10*3/uL (0.11-0.8); Monocytes % 11.5 % (1.7-12.7); Platelet Count 406 T/CUMM (130-400); Red Blood Count 3.59 MC/CUMM (3.8-5.5); White Blood Count 5.4 T/CUMM (4-12)
[2021-06-02 05:38] LABS: Calcium 8.6 MG/DL (8.5-10.1); Osmolality,Calculated 278.1 MOS/KG (273-304); Potassium 3.5 MMOL/L (3.5-5.1)
[2021-06-02] MEDS: SODIUM CHLORIDE 0.9% 1,000 ML IV SCH (06:07)
[2021-06-02] MEDS: INSULIN LISPRO 100 UNIT/ML SUBCUT SCH ×4 (07:52→22:00)
[2021-06-02] MEDS: FERRIC GLUCONATE COMPLEX 125 MG in SODIUM CHLORIDE 0.9% 100 ML IV SCH (09:17)
[2021-06-02] MEDS: SACUBITRIL/VALSARTAN 49-51 MG TABLET PO SCH ×2 (09:18→21:59)
[2021-06-02] MEDS: METOPROLOL SUCCINATE XL 100 MG TABLET PO SCH (09:18)
[2021-06-02] MEDS: ASPIRIN CHEW 81 MG TABLET PO SCH (09:18)
[2021-06-02] MEDS: GABAPENTIN 600 MG TABLET PO SCH ×3 (09:19→21:59)
[2021-06-02] MEDS: CLOPIDOGREL 75 MG TABLET PO SCH (09:19)
[2021-06-02] MEDS: ATORVASTATIN 40 MG TABLET PO SCH (09:19)
[2021-06-02] MEDS: RIVAROXABAN 20 MG TABLET PO SCH (17:10)
[2021-06-02] MEDS: INSULIN GLARGINE 100 UNIT/ML SUBCUT SCH (21:59)
[2021-06-03] MEDS: VANCOMYCIN 125 MG CAPSULE PO SCH ×4 (02:01→19:57)
[2021-06-03 05:26] LABS: Basophils # 0.1 10*3/uL (0.0-0.2); Basophils % 1.4 % (0.0-0.8); Eosinophils # 0.3 10*3/uL (0.0-0.87); Eosinophils % 4.4 % (0.00-10.9); Hemoglobin 10.1 GM/DL (14.0-18.0); Immature Granulocytes % 0.2 %; Immature Granulocytes Absolute 0.01 #; Lymphocytes # 1.1 10*3/uL (1.4-4.0); Lymphocytes % 19.9 % (21.2-54.2); Mean Corpuscular HGB Conc 31.6 GM/DL (32-36); Mean Corpuscular Volume 88.4 FL (87-102); Mean Platelet Volume 11.6 FL (9.6-12.0); Monocytes # 0.7 10*3/uL (0.11-0.8); Neutrophils % 61.1 % (38.7-73.9); Platelet Count 448 T/CUMM (130-400); Red Blood Count 3.62 MC/CUMM (3.8-5.5); Red Cell Distribution Width 15.7 % (9.3-17.3); White Blood Count 5.7 T/CUMM (4-12)
[2021-06-03 05:50] LABS: Calcium 8.6 MG/DL (8.5-10.1); Osmolality,Calculated 277.3 MOS/KG (273-304)
[2021-06-03] MEDS: FERRIC GLUCONATE COMPLEX 125 MG in SODIUM CHLORIDE 0.9% 100 ML IV SCH (08:45)
[2021-06-03] MEDS: CLOPIDOGREL 75 MG TABLET PO SCH (08:46)
[2021-06-03] MEDS: SACUBITRIL/VALSARTAN 49-51 MG TABLET PO SCH ×2 (08:46→21:36)
[2021-06-03] MEDS: METOPROLOL SUCCINATE XL 100 MG TABLET PO SCH (08:46)
[2021-06-03] MEDS: GABAPENTIN 600 MG TABLET PO SCH ×3 (08:47→21:35)
[2021-06-03] MEDS: ATORVASTATIN 40 MG TABLET PO SCH (08:47)
[2021-06-03] MEDS: INSULIN LISPRO 100 UNIT/ML SUBCUT SCH ×4 (09:40→21:37)
[2021-06-03] MEDS: POTASSIUM CHLORIDE 20 MEQ TABLET PO SCH ×2 (09:51→14:29)
[2021-06-03] MEDS ORDERED: MAGNESIUM SULF RIDER 4 GM/100 ML PREMIX IV ONE (14:58)
[2021-06-03] MEDS: INSULIN GLARGINE 100 UNIT/ML SUBCUT SCH (21:35)
[2021-06-03] MEDS: PANTOPRAZOLE 40 MG TABLET PO SCH (21:36)
[2021-06-04] MEDS: VANCOMYCIN 125 MG CAPSULE PO SCH ×2 (03:19→09:42)
[2021-06-04 05:03] LABS: Basophils % 0.9 % (0.0-0.8); Eosinophils # 0.3 10*3/uL (0.0-0.87); Eosinophils % 5.7 % (0.00-10.9); Hematocrit 38.2 VOL% (42.0-52.0); Immature Granulocytes % 0.4 %; Immature Granulocytes Absolute 0.02 #; Lymphocytes # 0.7 10*3/uL (1.4-4.0); Lymphocytes % 16.2 % (21.2-54.2); Mean Corpuscular HGB Conc 31.4 GM/DL (32-36); Mean Corpuscular Volume 89.7 FL (87-102); Monocytes # 0.3 10*3/uL (0.11-0.8); Monocytes % 5.7 % (1.7-12.7); Neutrophils % 71.1 % (38.7-73.9); Platelet Count 457 T/CUMM (130-400); Red Blood Count 4.26 MC/CUMM (3.8-5.5); Red Cell Distribution Width 15.9 % (9.3-17.3); White Blood Count 4.6 T/CUMM (4-12)
[2021-06-04 05:32] LABS: Albumin 2.6 G/DL (3.4-5.0); Bilirubin,Total 0.8 MG/DL (0.20-1.00); Calcium 8.6 MG/DL (8.5-10.1); Osmolality,Calculated 271.5 MOS/KG (273-304); Potassium 3.3 MMOL/L (3.5-5.1); Total Protein 7.3 G/DL (6.4-8.2)
[2021-06-04] MEDS: INSULIN LISPRO 100 UNIT/ML SUBCUT SCH (08:10)
[2021-06-04] MEDS ORDERED: POTASSIUM CHLORIDE 20 MEQ TABLET PO PRN (08:11)
[2021-06-04] MEDS ORDERED: MAGNESIUM SULF RIDER 2 GM/50 ML PREMIX IV PRN (08:12)
[2021-06-04 08:53] VITALS: BP 184/96
[2021-06-04] MEDS ORDERED: POTASSIUM CHLORIDE 20 MEQ TABLET PO SCH (09:00)
[2021-06-04] MEDS: SACUBITRIL/VALSARTAN 49-51 MG TABLET PO SCH (09:41)
[2021-06-04] MEDS: ATORVASTATIN 40 MG TABLET PO SCH (09:42)
[2021-06-04] MEDS: GABAPENTIN 600 MG TABLET PO SCH (09:42)
[2021-06-04] MEDS: METOPROLOL SUCCINATE XL 100 MG TABLET PO SCH (09:42)
[2021-06-04] MEDS: PANTOPRAZOLE 40 MG TABLET PO SCH (09:42)
[2021-06-04] MEDS: CLOPIDOGREL 75 MG TABLET PO SCH (09:42)
[2021-06-04] MEDS: FERRIC GLUCONATE COMPLEX 125 MG in SODIUM CHLORIDE 0.9% 100 ML IV SCH (09:51)
== END 2021-06-04 11:58 | DRG 871 ==
LOC: EDBD → EDUNIT# → N.ED 23:12 → N.EDINP 05-30 03:16 → N.TELEN 05-30 14:23
PROVIDERS: ADMIT Internal Medicine; ATTEND Internal Medicine